=== PATIENT | female | born 1995 | race Caucasian/White ===

== ENCOUNTER 2023-01-06 06:32 | Inpatient (IN) ==
[2023-01-06] MEDS ORDERED: STADOL INJ IVP PRN (06:39)
[2023-01-06] MEDS ORDERED: ZOFRAN INJ 4 MG VIAL IVP PRN (06:39)
[2023-01-06] MEDS ORDERED: REGLAN INJ 10 MG VIAL IVP PRN (06:39)
[2023-01-06] MEDS ORDERED: D5 LR + PITOCIN 10 UNITS/L 10 UNITS/1,000 ML BAG IV PRN (06:39)
[2023-01-06] MEDS ORDERED: PITOCIN IVP ONE (06:39)
[2023-01-06] MEDS ORDERED: NUBAIN INJ 20 MG AMP IVP PRN (06:39)
[2023-01-06] MEDS ORDERED: D5 1/2 NS 1,000 ML 1,000 ML IV SCH (06:39)
[2023-01-06] MEDS ORDERED: BETADINE SOLN ONE (06:46)
[2023-01-06] MEDS ORDERED: D5 1/2 NS 1,000 mL + PITOCIN 20 UNITS/L IV 20 UNITS/1,000 ML BAG IV ONE (06:46)
--- NOTE | 2023-01-06 07:08 | DR.OB ---
OB Quick Note - Assessment/Plan Assessment/Plan: L&D 01/06/23 at 7:00am S-No complaint. O-Afebrile,VSS [id number] with good LTV, +accel, no decel. CTX=mild uterine irritability CVX=1cm/50%/-1/VTX AROM with clear fluid. IUPC and FSE placed. A-IUP at 39 2/7 weeks for induction P-Begin pitocin induction Anticipate
[2023-01-06] MEDS ORDERED: LR 1,000 ML IV 1,000 ML IV ONE ×2 (09:28→09:29)
[2023-01-06] MEDS ORDERED: FENTANYL VIAL INJ 100 mcg ONE (09:29)
[2023-01-06] MEDS ORDERED: ZOFRAN INJ 4 MG VIAL ONE (09:37)
[2023-01-06] MEDS ORDERED: NAROPIN EPIDURAL 0.2% 100 ML ONE (10:24)
--- NOTE | 2023-01-06 12:10 | DR.OB ---
OB Quick Note - Assessment/Plan Assessment/Plan: L&D 01/06/23 at 12:05pm Pitocin=18mu/min. S-No complaint. s/p epidural. O-Afebrile,VSS MBR=[id number] with good LTV, +accel, no decel. CTX=q 1 1/2 to 2 min., about 35-55mmHg CVX=2-3cm/90%/0 A-IUP at 39 2/7 weeks for induction P-Continue pitocin induction Anticipate
[2023-01-06] MEDS: D5 1/2 NS 1,000 ML 1,000 ML with PITOCIN 20 UNITS IV SCH ×2 (16:06)
[2023-01-06] MEDS ORDERED: MILK OF MAGNESIA PO PRN (16:22)
[2023-01-06] MEDS ORDERED: DERMOPLAST PAIN RELIEF SPRAY TOP PRN (16:22)
[2023-01-06] MEDS ORDERED: ADACEL or BOOSTRIX TDaP VACCINE IM ONE (16:22)
[2023-01-06] MEDS ORDERED: AMBIEN PO PRN (16:22)
--- NOTE | 2023-01-06 17:01 | DR.OB ---
OB Quick Note - Assessment/Plan Assessment/Plan: Delivery Note [employer] 01/06/23 at 4:05pm Patient complete and pushing. Head delivered over intact perineum. No nuchal cord. Nose and mouth bulb suctioned. Body delivered over intact perineum. Cord clamped x 2 and cut. handed to attendant. Cord sent for gases. Placenta delivered spontaneously / intact / 3 vessel cord. No CVX tears. A small midline second degree tear noted and repaired with 0-vicryl in usual fashion. Viable female infant delivered by , VTX/OA, wt=7'6" and 8/9, stable to NBN. Mother stable to RR. IWL=[id number].
[2023-01-06] MEDS: MOTRIN TAB 800 MG PO PRN (20:47)
[2023-01-07] MEDS: D5 1/2 NS 1,000 ML 1,000 ML with PITOCIN 20 UNITS IV SCH ×6 (01:00→16:46)
[2023-01-07 04:49] LABS: HEMATOCRIT 37.3 % (36.0-47.0); HEMOGLOBIN 12.5 g/dL (12.0-16.0)
[2023-01-07] MEDS: MOTRIN TAB 800 MG PO PRN (08:08)
[2023-01-07] MEDS ORDERED: PRENATAL PLUS PO SCH (09:00)
[2023-01-07 14:44] VITALS: BP 113/64; PULSE 82; RESP 20; TEMP 98.4; O2SAT 98
== END 2023-01-07 17:55 | disposition home or self-care (01) | DRG 807 ==
LOC: LD 06:32 → MED/SURG 17:25
PROVIDERS: ADMIT Specialist; ATTEND Specialist
DX: Z37.0 Single live birth; Z3A.39 39 weeks gestation of pregnancy; O26.893 Other specified pregnancy related conditions, third trimester; O70.1 Second degree perineal laceration during delivery